=== PATIENT | female | born 1925 | race Caucasian/White ===

== ENCOUNTER 2017-01-30 18:27 | Emergency (ER) | payer MEDICARE, OTHER ==
[2017-01-30] MEDS ORDERED: Sodium Chloride 0.9% 10 ML Syringe FLUSH PRN (18:40)
[2017-01-30 18:41] VITALS: BP 165/90
--- NOTE | 2017-01-30 19:26 | EDM.PDOC ---
ED HPI GENERAL MEDICAL PROBLEM - General Chief Complaint: Abdominal Pain Stated Complaint: [facility] Time Seen by Provider: 01/30/17 18:35 Source of Information: Reports: Family (daughter), Detention Records, RN ( [facility] RN) History Limitations: Reports: Other (patient is pleasently demented ) - History of Present Illness INITIAL COMMENTS - FREE TEXT/NARRATIVE: 89-year-old female presents via [facility] for evaluation treatment of chest pain. Patient is pleasantly demented and is unable to provide much history. She reports since coming to the ER that she is not experiencing any pain. Per long-term report at 1737 the patient reported "the worst pain of her life " and pointed to her bilateral chest just beneath her clavicles. At that time she was sitting and not doing anything strenuous. No vomiting or diaphoresis. Patient has not been ill with fevers recently. EMS reports she did not complain of any chest pain to them. They thought she may be experiencing abdominal pain. Nopain medication given. Patient's daughter presented to the ER. She states that the patient had a busy day with visitors and music. She states she has a past medical history of anxiety and she feels this is likely from a busy day and stress. Onset: Today Location: Reports: Chest - Related Data Allergies Allergy/AdvReac Type Severity Reaction Status Date / Time amoxicillin Allergy Cannot Verified 01/30/17 18:42 Remember atenolol Allergy Cannot Verified 01/30/17 18:42 Remember cefaclor Allergy Cannot Verified 01/30/17 18:42 Remember esomeprazole [From Nexium] Allergy Cannot Verified 01/30/17 18:42 Remember metronidazole [From Flagyl] Allergy Cannot Verified 01/30/17 18:42 Remember omeprazole [From Prilosec] Allergy Cannot Verified 01/30/17 18:42 Remember Past Medical History HEENT History: Reports: Other (See Below) Other HEENT History: dry eyes Cardiovascular History: Reports: Hypertension, Other (See Below) Other Cardiovascular History: hyperlipidemia Musculoskeletal History: Reports: RA Neurological History: Reports: Alzheimers Disease Social & Family History - Family History Family Medical History: Noncontributory - Tobacco Use Smoking Status *Q: Unknown Ever Smoked - Caffeine Use Caffeine Use: Reports: None - Recreational Drug Use Recreational Drug Use: No ED ROS GENERAL - Review of Systems Review Of Systems: See Below Constitutional: Denies: Fever, Diaphoresis Respiratory: Denies: Shortness of Breath Cardiovascular: Reports: Chest Pain GI/Abdominal: Reports: Abdominal Pain (possibly). Denies: Vomiting ED EXAM, GENERAL - Physical Exam Exam: See Below Exam Limited By: No Limitations General Appearance: Alert, No Apparent Distress, Thin Eye Exam: Bilateral Eye: Nystagmus Ears: Normal External Exam Throat/Mouth: Normal Inspection, Normal Voice, No Airway Compromise Respiratory/Chest: No Respiratory Distress, Lungs Clear, Normal Breath Sounds Cardiovascular: Normal Peripheral Pulses, Regular Rate, Rhythm, No Murmur GI/Abdominal: Normal Bowel Sounds, Soft, Tender (minor discomfort with palpation of the epigastric area), Other (negative salazar's sign) Neurological: Alert Psychiatric: Normal Affect, Normal Mood Skin Exam: Warm, Dry EKG INTERPRETATION EKG Date: 01/30/17 Time: 18:35 Rhythm: NSR Rate (Beats/Min): 75 [place]: Normal P-Wave: Present QRS: RBBB ST-T: Normal QT: Normal EKG Interpretation Comments: NSR at 75 bpm. RBBB and LAFB. No acute changes. Reviewed by myself and Dr. Jaramillo. Course - Vital Signs Last Recorded V/S: Last Vital Signs Temp 37.2 C 01/30/17 18:34 Pulse 75 01/30/17 18:34 Resp 20 01/30/17 18:34 BP 165/90 H 01/30/17 18:34 Pulse Ox 100 01/30/17 18:34 - Orders/Labs/Meds Labs: Laboratory Tests 01/30/17 01/30/17 01/30/17 Range/Units 18:55 18:55 18:55 WBC 8.91 (3.98-10.04) K/mm3 RBC 4.65 (3.98-5.22) M/mm3 Hgb 11.7 (11.2-15.7) gm/L Hct 35.1 (34.1-44.9) % MCV 75.5 L (79.4-94.8) fl MCH 25.2 L (25.6-32.2) pg MCHC 33.3 (32.2-35.5) g/dl RDW Std Deviation 45.0 (36.4-46.3) fL Plt Count 288 (182-369) K/mm3 MPV 10.2 (9.4-12.3) fl Neutrophils % (Manual) 62 H (40-60) % Band Neutrophils % 0 (0-10) % Lymphocytes % (Manual) 28 (20-40) % Atypical Lymphs % 0 % Monocytes % (Manual) 9 (2-10) % Eosinophils % (Manual) 0 L (0.7-5.8) % Basophils % (Manual) 1 (0.1-1.2) Platelet Estimate Adequate Plt Morphology Comment Normal RBC Morph Comment Normal PT 10.6 (8.0-13.0) SECONDS INR 0.97 Sodium 137 (136-145) mEq/L Potassium 3.6 (3.5-5.1) mEq/L Chloride 102 (98-107) mEq/L Carbon Dioxide 31 (21-32) mEq/L Anion Gap 7.6 (5-15) BUN 20 H (7-18) mg/dL Creatinine 0.9 (0.55-1.02) mg/dL Est Cr Clr Drug Dosing TNP Estimated GFR (MDRD) 59 (>60) mL/min BUN/Creatinine Ratio 22.2 H (14-18) Glucose 105 (83-115) mg/dL Calcium 9.0 (8.5-10.1) mg/dL Total Bilirubin 0.8 (0.2-1.0) mg/dL AST 73 H (15-37) U/L ALT 81 H (14-59) U/L Alkaline Phosphatase 154 H (46-116) U/L Troponin I < 0.017 (0.00-0.056) ng/mL Total Protein 7.0 (6.4-8.2) g/dl Albumin 2.9 L (3.4-5.0) g/dl Globulin 4.1 gm/dL Albumin/Globulin Ratio 0.7 L (1-2) Lipase 124 (73-393) U/L Urine Color (Yellow) Urine Appearance (Clear) Urine pH (5.0-8.0) Ur Specific [place] (1.005-1.030) Urine Protein (Negative) Urine Glucose (UA) (Negative) Urine Ketones (Negative) Urine Occult Blood (Negative) Urine Nitrite (Negative) Urine Bilirubin (Negative) Urine Urobilinogen (0.2-1.0) Ur Leukocyte Esterase (Negative) Urine RBC (0-5) /hpf Urine WBC (0-5) /hpf Ur Epithelial Cells (0-5) /hpf Urine Bacteria (FEW) /hpf Urine Mucus (FEW) /hpf 01/30/17 01/30/17 Range/Units 19:50 21:04 WBC (3.98-10.04) K/mm3 RBC (3.98-5.22) M/mm3 Hgb (11.2-15.7) gm/L Hct (34.1-44.9) % MCV (79.4-94.8) fl MCH (25.6-32.2) pg MCHC (32.2-35.5) g/dl RDW Std Deviation (36.4-46.3) fL Plt Count (182-369) K/mm3 MPV (9.4-12.3) fl Neutrophils % (Manual) (40-60) % Band Neutrophils % (0-10) % Lymphocytes % (Manual) (20-40) % Atypical Lymphs % % Monocytes % (Manual) (2-10) % Eosinophils % (Manual) (0.7-5.8) % Basophils % (Manual) (0.1-1.2) Platelet Estimate Plt Morphology Comment RBC Morph Comment PT (8.0-13.0) SECONDS INR Sodium (136-145) mEq/L Potassium (3.5-5.1) mEq/L Chloride (98-107) mEq/L Carbon Dioxide (21-32) mEq/L Anion Gap (5-15) BUN (7-18) mg/dL Creatinine (0.55-1.02) mg/dL Est Cr Clr Drug Dosing Estimated GFR (MDRD) (>60) mL/min BUN/Creatinine Ratio (14-18) Glucose (83-115) mg/dL Calcium (8.5-10.1) mg/dL Total Bilirubin (0.2-1.0) mg/dL AST (15-37) U/L ALT (14-59) U/L Alkaline Phosphatase (46-116) U/L Troponin I < 0.017 (0.00-0.056) ng/mL Total Protein (6.4-8.2) g/dl Albumin (3.4-5.0) g/dl Globulin gm/dL Albumin/Globulin Ratio (1-2) Lipase (73-393) U/L Urine Color Yellow (Yellow) Urine Appearance Slt cloudy H (Clear) Urine pH 7.5 (5.0-8.0) Ur Specific [place] 1.020 (1.005-1.030) Urine Protein 1+ H (Negative) Urine Glucose (UA) Negative (Negative) Urine Ketones Negative (Negative) Urine Occult Blood Negative (Negative) Urine Nitrite Negative (Negative) Urine Bilirubin Negative (Negative) Urine Urobilinogen 2.0 H (0.2-1.0) Ur Leukocyte Esterase Negative (Negative) Urine RBC 0-5 (0-5) /hpf Urine WBC 0-5 (0-5) /hpf Ur Epithelial Cells 0-5 (0-5) /hpf Urine Bacteria Few (FEW) /hpf Urine Mucus Not seen (FEW) /hpf Meds: Medications Discontinued Medications Generic Name Dose Route Start Last Admin Trade Name Freq PRN Reason Stop Dose Admin Sodium Chloride 10 ml 01/30/17 18:40 01/30/17 19:38 Saline Flush FLUSH 10 ml ASDIRECTED PRN Administration Keep Vein Open - Radiology Interpretation Free Text/Narrative:: chest 1 view shows a tortourous thoracic aorta. No acute intrathoracic process. KUB shows calcified costal cartilage. No acute changes. - Re-Assessments/Exams Free Text/Narrative Re-Assessment/Exam: 01/30/17 20:00 labs returned. Of note liver enzymes are slightly elevated. I asked Dr. Conde to assist with a bedside ultrasound to evaluate her gallbladder. No stones appreciated. No wall thickening appreciated. Plan is to repeat the trop and if normal will discharge home tonight. 01/30/17 22:00 Repeat trop is negative at <0.017. will discharge back to the long-term. Discharge instructions as documented. Departure - Departure Time of Disposition: 21:55 Disposition: DC/Tfer to [facility] Reason for Transfer *Q: Other (transfered back to long-term) Condition: Good Clinical Impression: Anxiety Instructions: Panic Attacks Referrals: Estevan Nails MD [Primary Care Provider] - Forms: ED Department Discharge Additional Instructions: Continue with your current plan of care. Follow up with your primary care provider next week for recheck. Please return to the ER if your symptoms change or worsen.
--- NOTE | 2017-02-02 08:58 | CR ---
Abdomen: Supine view of the abdomen was obtained. Bowel gas pattern is normal. Mild vascular calcification is seen. Numerous phleboliths are seen within the pelvis. Impression: 1. Incidental findings. Diagnostic code #2
--- NOTE | 2017-02-02 08:58 | CR ---
Chest: Portable view of the chest was obtained. Comparison: No prior study. Heart size appears within normal limits for portable technique. Tortuous thoracic aorta is seen. Mild increased right-sided central lung markings are seen with more confluent density within the right base. Lungs otherwise are clear. Bony structures are osteopenic. Impression: 1. Increased central lung markings on the right side raising the possibility of bronchitis. Mild focal density within the right lung base either due to atelectasis/aspiration or even pneumonia. Diagnostic code #3
== END 2017-01-30 23:01 ==
LOC: JD.ED 18:27
DX: F41.9 Anxiety disorder, unspecified (principal); E78.5 Hyperlipidemia, unspecified; I10 Essential (primary) hypertension; M06.9 Rheumatoid arthritis, unspecified; G30.9 Alzheimer's disease, unspecified; F02.80 Dementia in other diseases classified elsewhere, unspecified severity, without behavioral disturbance, psychotic disturbance, mood disturbance, and anxiety; Z88.1 Allergy status to other antibiotic agents; Z88.8 Allergy status to other drugs, medicaments and biological substances
CPT/HCPCS: 36415; 71010; 74000; 80053; 81001; 83690; 84484; 85025; 85610; 93005; 99285; J7050; P9612